=== PATIENT | female | born 1980 | race Caucasian/White ===

== ENCOUNTER 2016-08-29 20:38 | Inpatient (IN) | payer OTHER ==
[~2016-08-29] VITALS: Ht 165.1 cm; Wt 84.6 kg
[~2016-08-29 20:38] MED LIST: ACETAMINOPHEN325 MG PO; CELEXA40 MG PO; CYTOMEL25 MC1 PO; LAMICTAL25 MG PO; LEVEMIR VI100 UNITS/ SC; LIPITOR20 MG PO; LYRICA100 MG PO; NOVOLOG VI100 UNIT/1 SC; NOVOLOG100 UNIT/1 SC; PHENERGAN25 M1 PO; SYNTHROID100 MCG PO; SYNTHROID200 MCG PO; VITAMIN D1000 UNI1 PO
[2016-08-29 21:48] LABS: BILIRUBIN NEGATIVE (NEGATIVE); BLOOD TRACE-INTACT Ery/uL (NEGATIVE); CLARITY CLEAR (CLEAR); COLOR COLORLESS (YELLOW); GLUCOSE (U) 3+ mg/dL (NORMAL); KETONE (U) 3+ (LARGE) mg/dL (NEGATIVE); LEUKOCYTES NEGATIVE Leu/uL (NEGATIVE); NITRITE NEGATIVE (NEGATIVE); PROTEIN NEGATIVE (NEGATIVE); SPECIFIC GRAVITY 1.025 (1.001-1.030); UROBILINOGEN 0.2 mg/dL (0.2-1.0); pH 5.5 (5.0-9.0)
[2016-08-29 21:50] LABS: ALBUMIN 4.8 g/dL (3.5-5.0); BILIRUBIN - TOTAL 2.1 mg/dL (0.1-1.0); CREATININE 0.8 mg/dL (0.5-1.0); GLOBULIN (CALCULATION) 2.5 g/dL (2.2-4.2); POTASSIUM 4.5 mmol/L (3.5-5.1); TOTAL PROTEIN 7.3 g/dL (6.4-8.3)
[2016-08-29 21:58] LABS: BACTERIA 1+; SQUAMOUS EPITHELIAL CELLS >50; YEAST PRESENT
[2016-08-29 21:58] LABS: BASOPHIL 1.3 % (0-2); EOSINOPHIL 0.2 % (0-5); HCT 39.3 % (37.0-47.0); HGB 13.9 g/dl (12.5-16.0); LYMPHOCYTE 17.4 % (15-48); MCH 31.7 pg (25.0-31.0); MCHC 35.4 g/dL (32.0-36.0); MCV 89.5 fL (78.0-100.0); MONOCYTE 5.8 % (0-12); MPV 12.6 fL (6.0-9.5); NEUTROPHIL 75.3 % (41-80); PLT 218 K/uL (150-400); RBC 4.39 M/uL (4.20-5.40); RDW 13.5 % (11.5-14.0)
[2016-08-30 03:49] LABS: BASOPHIL 0.6 % (0-2); HCT 32.3 % (37.0-47.0); HGB 11.7 g/dl (12.5-16.0); LYMPHOCYTE 25.8 % (15-48); MCH 32.1 pg (25.0-31.0); MCHC 36.2 g/dL (32.0-36.0); MCV 88.7 fL (78.0-100.0); MONOCYTE 8.4 % (0-12); MPV 11.2 fL (6.0-9.5); NEUTROPHIL 64.2 % (41-80); PLT 197 K/uL (150-400); RBC 3.64 M/uL (4.20-5.40); RDW 13.5 % (11.5-14.0); WBC 7.7 K/uL (4.0-10.5)
[2016-08-30 04:08] LABS: CREATININE 0.7 mg/dL (0.5-1.0); PHOSPHORUS 2.2 mg/dL (2.7-4.5); POTASSIUM 3.4 mmol/L (3.5-5.1)
[2016-08-30 08:18] LABS: CREATININE 0.8 mg/dL (0.5-1.0); POTASSIUM 3.6 mmol/L (3.5-5.1)
[2016-08-30 14:43] LABS: CREATININE 0.8 mg/dL (0.5-1.0); POTASSIUM 3.8 mmol/L (3.5-5.1)
[2016-08-30 20:46] LABS: CREATININE 0.7 mg/dL (0.5-1.0); POTASSIUM 3.6 mmol/L (3.5-5.1)
[2016-08-31 07:53] LABS: CREATININE 0.7 mg/dL (0.5-1.0); POTASSIUM 3.5 mmol/L (3.5-5.1)
--- NOTE | 2016-08-31 18:00 | NUR ---
REPORT CALLED TO CATIE ESPINO ON MED SURG PTS VITALS STABLE AT THIS TIME
[2016-09-01 08:13] LABS: ALBUMIN 3.8 g/dL (3.5-5.0); BILIRUBIN - TOTAL 0.6 mg/dL (0.1-1.0); CREATININE 0.7 mg/dL (0.5-1.0); GLOBULIN (CALCULATION) 2.1 g/dL (2.2-4.2); MAGNESIUM 1.85 mg/dL (1.40-2.10); PHOSPHORUS 3.1 mg/dL (2.7-4.5); POTASSIUM 3.8 mmol/L (3.5-5.1); TOTAL PROTEIN 5.9 g/dL (6.4-8.3)
[2016-09-01] MEDS ORDERED: PROTONIX 40MG T40 MG PO (11:32)
[2016-09-01] MEDS ORDERED: LORATADINE10 MG PO (11:41)
[2016-09-01] MEDS ORDERED: HUMALOG100 UNIT/1 SC ×3 (11:41→11:42)
[2016-09-01] MEDS ORDERED: KLONOPIN1 MG PO (11:41)
[2016-09-01] MEDS ORDERED: BENTYL10 MG PO (11:42)
== END 2016-09-01 13:37 | disposition home or self-care (01) | DRG 638 ==
LOC: FER 20:38 → FICU 22:44 → FMS 08-31 18:33
PROVIDERS: Internal Medicine; ADMIT Internal Medicine
DX: E10.10 Type 1 diabetes mellitus with ketoacidosis without coma (principal); E87.1 Hypo-osmolality and hyponatremia; E83.39 Other disorders of phosphorus metabolism; F17.210 Nicotine dependence, cigarettes, uncomplicated; E03.9 Hypothyroidism, unspecified; E78.5 Hyperlipidemia, unspecified; E87.6 Hypokalemia; Z88.8 Allergy status to other drugs, medicaments and biological substances; Z79.4 Long term (current) use of insulin
CPT/HCPCS: 36415; 36600; 74022; 80048; 80053; 80061; 81001; 82009; 82803; 82947; 82962; 83605; 83690; 83735; 84100; 85025; 94010; J1815; J2270; J2405

== ENCOUNTER 2016-09-30 19:21 | Inpatient (IN) | payer OTHER ==
[~2016-09-30] VITALS: Ht 165.1 cm; Wt 79.4 kg
[~2016-09-30 19:21] MED LIST changes: +BENTYL10 MG PO; +HUMALOG100 UNIT/1 SC; +KLONOPIN1 MG PO; +LORATADINE10 MG PO; +PROTONIX 40MG T40 MG PO
[2016-09-30 20:14] LABS: BILIRUBIN NEGATIVE (NEGATIVE); BLOOD NEGATIVE Ery/uL (NEGATIVE); CLARITY CLEAR (CLEAR); COLOR YELLOW (YELLOW); GLUCOSE (U) 3+ mg/dL (NORMAL); KETONE (U) 3+ (LARGE) mg/dL (NEGATIVE); LEUKOCYTES NEGATIVE Leu/uL (NEGATIVE); NITRITE NEGATIVE (NEGATIVE); PROTEIN NEGATIVE (NEGATIVE); SPECIFIC GRAVITY 1.025 (1.001-1.030); UROBILINOGEN 0.2 mg/dL (0.2-1.0); pH 5.5 (5.0-9.0)
[2016-10-01 00:54] LABS: BASOPHIL 0.8 % (0-2); EOSINOPHIL 0.1 % (0-5); HCT 36.8 % (37.0-47.0); HGB 13.1 g/dl (12.5-16.0); LYMPHOCYTE 12.3 % (15-48); MCH 32.9 pg (25.0-31.0); MCHC 35.6 g/dL (32.0-36.0); MCV 92.5 fL (78.0-100.0); MONOCYTE 7.9 % (0-12); MPV 11.7 fL (6.0-9.5); NEUTROPHIL 78.9 % (41-80); PLT 251 K/uL (150-400); RBC 3.98 M/uL (4.20-5.40); RDW 12.6 % (11.5-14.0); WBC 10.5 K/uL (4.0-10.5)
[2016-10-01 01:10] LABS: ALBUMIN 4.4 g/dL (3.5-5.0); BILIRUBIN - TOTAL 0.6 mg/dL (0.1-1.0); CREATININE 0.9 mg/dL (0.5-1.0); GLOBULIN (CALCULATION) 2.8 g/dL (2.2-4.2); MAGNESIUM 2.12 mg/dL (1.40-2.10); POTASSIUM 4.7 mmol/L (3.5-5.1); TOTAL PROTEIN 7.2 g/dL (6.4-8.3)
[2016-10-01 01:43] LABS: LACTIC ACID 2.6 mmol/L (0.5-2.2)
[2016-10-01 04:47] LABS: BILIRUBIN - TOTAL 0.5 mg/dL (0.1-1.0); CREATININE 0.8 mg/dL (0.5-1.0); GLOBULIN (CALCULATION) 2.5 g/dL (2.2-4.2); POTASSIUM 4.7 mmol/L (3.5-5.1); TOTAL PROTEIN 6.5 g/dL (6.4-8.3)
[2016-10-01 09:57] LABS: CREATININE 0.8 mg/dL (0.5-1.0); POTASSIUM 4.4 mmol/L (3.5-5.1)
[2016-10-01 14:23] LABS: CREATININE 0.7 mg/dL (0.5-1.0); POTASSIUM 4.1 mmol/L (3.5-5.1)
--- NOTE | 2016-10-01 16:15 | NUR ---
DISCUSSED LOW BLOOD PRESSURE WITH MAP [id number] VERGARA. PT ASSESSED BY DR VERGARA AND PEDAL PULSES NOTED TO BE STRONG. NO ADDITIONAL ORDERS AT THIS TIME
[2016-10-01 19:13] LABS: CREATININE 0.5 mg/dL (0.5-1.0); POTASSIUM 3.1 mmol/L (3.5-5.1)
[2016-10-02 05:23] LABS: HCT 30.3 % (37.0-47.0); HGB 10.5 g/dl (12.5-16.0); MCH 32.5 pg (25.0-31.0); MCHC 34.7 g/dL (32.0-36.0); MCV 93.8 fL (78.0-100.0); MPV 11.7 fL (6.0-9.5); RBC 3.23 M/uL (4.20-5.40); RDW 13.1 % (11.5-14.0); WBC 6.5 K/uL (4.0-10.5)
[2016-10-02 05:40] LABS: CREATININE 0.6 mg/dL (0.5-1.0)
[2016-10-02 08:41] LABS: ALBUMIN 3.3 g/dL (3.5-5.0); BILIRUBIN - TOTAL 0.3 mg/dL (0.1-1.0); GLOBULIN (CALCULATION) 2.3 g/dL (2.2-4.2); TOTAL PROTEIN 5.6 g/dL (6.4-8.3)
[2016-10-02 12:29] LABS: IRON 35 ug/dL (44-196); IRON % SATURATION 20 %SAT (20-50); TIBC (TOTAL IRON + UIBC) 178 U/L (228-428); UIBC 143 ug/dL (112-346)
[2016-10-02 18:30] LABS: CREATININE 0.5 mg/dL (0.5-1.0); POTASSIUM 4.3 mmol/L (3.5-5.1)
[2016-10-03 03:58] LABS: HCT 30.4 % (37.0-47.0); HGB 10.3 g/dl (12.5-16.0); MCH 31.9 pg (25.0-31.0); MCHC 33.9 g/dL (32.0-36.0); MCV 94.1 fL (78.0-100.0); MPV 11.3 fL (6.0-9.5); RBC 3.23 M/uL (4.20-5.40); RDW 13.1 % (11.5-14.0); WBC 4.8 K/uL (4.0-10.5)
[2016-10-03 04:41] LABS: BUN <3.0 mg/dL (6-25); CHLORIDE 102 mmol/L (98-107); CREATININE 0.6 mg/dL (0.5-1.0); GLUCOSE 154 mg/dL (70-105)
--- NOTE | 2016-10-03 09:48 | NUR ---
orders to discontinue insulin gtt recd. Discontinued insulin gtt at 0917.
[2016-10-04 04:53] LABS: BASOPHIL 1.1 % (0-2); EOSINOPHIL 2.3 % (0-5); HCT 32.6 % (37.0-47.0); HGB 11.6 g/dl (12.5-16.0); LYMPHOCYTE 27.4 % (15-48); MCH 32.8 pg (25.0-31.0); MCHC 35.6 g/dL (32.0-36.0); MCV 92.1 fL (78.0-100.0); MONOCYTE 11.2 % (0-12); MPV 11.9 fL (6.0-9.5); PLT 141 K/uL (150-400); RBC 3.54 M/uL (4.20-5.40); RDW 12.8 % (11.5-14.0); WBC 6.2 K/uL (4.0-10.5)
[2016-10-04 06:23] LABS: CREATININE 0.6 mg/dL (0.5-1.0); POTASSIUM 4.3 mmol/L (3.5-5.1)
== END 2016-10-04 15:55 | disposition home or self-care (01) | DRG 871 ==
LOC: FER 19:21 → FICU 10-01 10:10 → FMS 10-03 16:55
PROVIDERS: Emergency Medicine; Nurse Practitioner; ADMIT Internal Medicine
DX: A41.9 Sepsis, unspecified organism (principal); E10.10 Type 1 diabetes mellitus with ketoacidosis without coma; I95.9 Hypotension, unspecified; K31.84 Gastroparesis; E10.40 Type 1 diabetes mellitus with diabetic neuropathy, unspecified; E03.9 Hypothyroidism, unspecified; E78.5 Hyperlipidemia, unspecified; F41.1 Generalized anxiety disorder; F32.9 Major depressive disorder, single episode, unspecified; F17.210 Nicotine dependence, cigarettes, uncomplicated; J20.9 Acute bronchitis, unspecified; Z79.4 Long term (current) use of insulin
CPT/HCPCS: 36415; 71010; 80048; 80053; 81003; 82009; 82040; 82247; 82330; 82533; 82607; 82962; 83036; 83540; 83550; 83605; 83690; 83735; 83930; 84075; 84100; 84155; 84450; 84460; 84484; 85025; 86403; 87070; 87077; 87186; 87205; 93005; 94010; J0456; J0610; J1815; J2270; J2405

== ENCOUNTER 2016-10-30 11:08 | Inpatient (IN) | payer OTHER ==
[~2016-10-30] VITALS: Ht 165.1 cm; Wt 68.6 kg
[2016-10-30 12:24] LABS: BASOPHIL 0.6 % (0-2); EOSINOPHIL 0.1 % (0-5); HCT 42.7 % (37.0-47.0); HGB 15.3 g/dl (12.5-16.0); LYMPHOCYTE 10.2 % (15-48); MCH 31.5 pg (25.0-31.0); MCHC 35.8 g/dL (32.0-36.0); MCV 87.9 fL (78.0-100.0); MONOCYTE 4.1 % (0-12); MPV 11.5 fL (6.0-9.5); PLT 257 K/uL (150-400); RBC 4.86 M/uL (4.20-5.40); RDW 11.9 % (11.5-14.0); WBC 10.4 K/uL (4.0-10.5)
[2016-10-30 12:30] LABS: LACTIC ACID 2.3 mmol/L (0.5-2.2)
[2016-10-30 12:33] LABS: ALBUMIN 4.5 g/dL (3.5-5.0); BILIRUBIN - TOTAL 0.6 mg/dL (0.1-1.0); CREATININE 0.6 mg/dL (0.5-1.0); GLOBULIN (CALCULATION) 3.8 g/dL (2.2-4.2); POTASSIUM 4.2 mmol/L (3.5-5.1); TOTAL PROTEIN 8.3 g/dL (6.4-8.3)
[2016-10-30 13:43] LABS: BILIRUBIN 1+ mg/dL (NEGATIVE); BLOOD NEGATIVE Ery/uL (NEGATIVE); CLARITY CLEAR (CLEAR); COLOR YELLOW (YELLOW); GLUCOSE (U) 2+ mg/dL (NORMAL); KETONE (U) 3+ (LARGE) mg/dL (NEGATIVE); LEUKOCYTES NEGATIVE Leu/uL (NEGATIVE); NITRITE NEGATIVE (NEGATIVE); PROTEIN 1+ mg/dL (NEGATIVE); SPECIFIC GRAVITY >=1.030 (1.001-1.030); UROBILINOGEN 0.2 mg/dL (0.2-1.0); pH 5.5 (5.0-9.0)
[2016-10-30 13:50] LABS: BACTERIA 2+; SQUAMOUS EPITHELIAL CELLS >50; YEAST PRESENT
[2016-10-30 18:33] LABS: CREATININE 0.4 mg/dL (0.5-1.0)
[2016-10-31 04:14] LABS: HCT 33.5 % (37.0-47.0); HGB 11.9 g/dl (12.5-16.0); MCH 31.6 pg (25.0-31.0); MCHC 35.5 g/dL (32.0-36.0); MCV 89.1 fL (78.0-100.0); MPV 11.4 fL (6.0-9.5); RBC 3.76 M/uL (4.20-5.40); WBC 5.7 K/uL (4.0-10.5)
[2016-10-31 04:45] LABS: CREATININE 0.5 mg/dL (0.5-1.0); POTASSIUM 3.8 mmol/L (3.5-5.1)
== END 2016-10-31 13:02 | DRG 638 ==
LOC: FER 11:08 → FICU 13:20
PROVIDERS: Emergency Medicine; ADMIT Internal Medicine
DX: E10.10 Type 1 diabetes mellitus with ketoacidosis without coma (principal); R45.851 Suicidal ideations; F17.210 Nicotine dependence, cigarettes, uncomplicated; F32.9 Major depressive disorder, single episode, unspecified; E78.5 Hyperlipidemia, unspecified; E03.9 Hypothyroidism, unspecified; F41.9 Anxiety disorder, unspecified; G62.9 Polyneuropathy, unspecified; K21.9 Gastro-esophageal reflux disease without esophagitis; K31.84 Gastroparesis; Z79.4 Long term (current) use of insulin; Z79.899 Other long term (current) drug therapy
CPT/HCPCS: 36415; 36600; 80048; 80053; 81001; 82009; 82803; 82962; 83605; 83690; 85025; 87088; C9113; J1815; J2405; J2765

== ENCOUNTER 2017-01-29 14:10 | Inpatient (IN) | payer OTHER ==
[~2017-01-29] VITALS: Ht 165.1 cm; Wt 75.8 kg
[2017-01-29 14:56] LABS: BASOPHIL 0.5 % (0-2); EOSINOPHIL 1.1 % (0-5); HCT 37.5 % (37.0-47.0); HGB 12.9 g/dl (12.5-16.0); LYMPHOCYTE 13.7 % (15-48); MCH 29.1 pg (25.0-31.0); MCHC 34.4 g/dL (32.0-36.0); MCV 84.5 fL (78.0-100.0); MONOCYTE 4.8 % (0-12); MPV 11.1 fL (6.0-9.5); NEUTROPHIL 79.9 % (41-80); PLT 277 K/uL (150-400); RBC 4.44 M/uL (4.20-5.40); RDW 12.5 % (11.5-14.0); WBC 10.5 K/uL (4.0-10.5)
[2017-01-29 15:14] LABS: ALBUMIN 3.6 g/dL (3.5-5.0); BILIRUBIN - TOTAL 0.3 mg/dL (0.1-1.0); CREATININE 0.7 mg/dL (0.5-1.0); GLOBULIN (CALCULATION) 2.8 g/dL (2.2-4.2); POTASSIUM 5.3 mmol/L (3.5-5.1); TOTAL PROTEIN 6.4 g/dL (6.4-8.3)
[2017-01-29 15:26] LABS: BILIRUBIN NEGATIVE (NEGATIVE); BLOOD NEGATIVE Ery/uL (NEGATIVE); CLARITY CLEAR (CLEAR); COLOR STRAW (YELLOW); GLUCOSE (U) 3+ mg/dL (NORMAL); KETONE (U) 3+ (LARGE) mg/dL (NEGATIVE); LEUKOCYTES NEGATIVE Leu/uL (NEGATIVE); NITRITE NEGATIVE (NEGATIVE); PROTEIN NEGATIVE (NEGATIVE); UROBILINOGEN 0.2 mg/dL (0.2-1.0); pH 5.5 (5.0-9.0)
[2017-01-29 15:40] LABS: AMPHETAMINES NEGATIVE (NEGATIVE); BARBITURATES NEGATIVE (NEGATIVE); BENZODIAZEPINES NEGATIVE (NEGATIVE); COCAINE NEGATIVE (NEGATIVE); MARIJUANA (THC) NEGATIVE (NEGATIVE); METHADONE NEGATIVE (NEGATIVE); TRICYCLIC ANTIDEPRESSANT NEGATIVE (NEGATIVE)
[2017-01-29 21:20] LABS: CREATININE 0.5 mg/dL (0.5-1.0); MAGNESIUM 1.68 mg/dL (1.40-2.10); PHOSPHORUS 1.5 mg/dL (2.7-4.5); POTASSIUM 3.6 mmol/L (3.5-5.1)
[2017-01-30 02:40] LABS: CREATININE 0.5 mg/dL (0.5-1.0); MAGNESIUM 1.68 mg/dL (1.40-2.10); PHOSPHORUS 2.1 mg/dL (2.7-4.5); POTASSIUM 3.6 mmol/L (3.5-5.1)
[2017-01-30 06:15] LABS: C-REACTIVE PROTEIN 4.8 mg/dL (0.00-0.50)
[2017-01-30 06:26] LABS: FT4 (FREE T4) 0.485 ng/dL (0.93-1.70); TSH (THYROID STIM HORMONE) 51.43 uIU/mL (0.270-4.200)
[2017-01-30 08:24] LABS: HCT 33.9 % (37.0-47.0); HGB 11.5 g/dl (12.5-16.0); MCH 28.9 pg (25.0-31.0); MCHC 33.9 g/dL (32.0-36.0); MCV 85.2 fL (78.0-100.0); MPV 11.5 fL (6.0-9.5); RBC 3.98 M/uL (4.20-5.40); WBC 5.5 K/uL (4.0-10.5)
[2017-01-30 08:59] LABS: CREATININE 0.5 mg/dL (0.5-1.0); MAGNESIUM 1.72 mg/dL (1.40-2.10); PHOSPHORUS 2.5 mg/dL (2.7-4.5); POTASSIUM 3.3 mmol/L (3.5-5.1)
[2017-01-30 17:29] LABS: CREATININE 0.5 mg/dL (0.5-1.0); MAGNESIUM 1.62 mg/dL (1.40-2.10); PHOSPHORUS 3.4 mg/dL (2.7-4.5)
[2017-01-31 05:53] LABS: HCT 34.9 % (37.0-47.0); HGB 12.1 g/dl (12.5-16.0); MCH 29.3 pg (25.0-31.0); MCHC 34.7 g/dL (32.0-36.0); MCV 84.5 fL (78.0-100.0); RBC 4.13 M/uL (4.20-5.40); RDW 13.1 % (11.5-14.0); WBC 7.9 K/uL (4.0-10.5)
[2017-01-31 06:22] LABS: BILIRUBIN - TOTAL 0.3 mg/dL (0.1-1.0); CREATININE 0.5 mg/dL (0.5-1.0); GLOBULIN (CALCULATION) 2.7 g/dL (2.2-4.2); MAGNESIUM 1.87 mg/dL (1.40-2.10); PHOSPHORUS 2.2 mg/dL (2.7-4.5); POTASSIUM 3.2 mmol/L (3.5-5.1); TOTAL PROTEIN 5.7 g/dL (6.4-8.3)
[2017-02-01 05:09] LABS: BASOPHIL 1.3 % (0-2); EOSINOPHIL 4.1 % (0-5); HCT 34.6 % (37.0-47.0); HGB 11.7 g/dl (12.5-16.0); LYMPHOCYTE 48.5 % (15-48); MCH 28.9 pg (25.0-31.0); MCHC 33.8 g/dL (32.0-36.0); MCV 85.4 fL (78.0-100.0); MONOCYTE 7.2 % (0-12); MPV 10.5 fL (6.0-9.5); NEUTROPHIL 38.9 % (41-80); PLT 240 K/uL (150-400); RBC 4.05 M/uL (4.20-5.40); RDW 13.4 % (11.5-14.0); WBC 5.4 K/uL (4.0-10.5)
[2017-02-01 05:28] LABS: ALBUMIN 2.9 g/dL (3.5-5.0); BILIRUBIN - TOTAL 0.2 mg/dL (0.1-1.0); CREATININE 0.5 mg/dL (0.5-1.0); GLOBULIN (CALCULATION) 2.7 g/dL (2.2-4.2); MAGNESIUM 1.67 mg/dL (1.40-2.10); PHOSPHORUS 2.7 mg/dL (2.7-4.5); POTASSIUM 3.8 mmol/L (3.5-5.1); TOTAL PROTEIN 5.6 g/dL (6.4-8.3)
[2017-02-01 09:41] LABS: BILIRUBIN NEGATIVE (NEGATIVE); BLOOD NEGATIVE Ery/uL (NEGATIVE); CLARITY CLEAR (CLEAR); COLOR YELLOW (YELLOW); GLUCOSE (U) NORMAL (NORMAL); KETONE (U) NEGATIVE (NEGATIVE); LEUKOCYTES NEGATIVE Leu/uL (NEGATIVE); NITRITE NEGATIVE (NEGATIVE); PROTEIN NEGATIVE (NEGATIVE); SPECIFIC GRAVITY <=1.005 (1.001-1.030); UROBILINOGEN 0.2 mg/dL (0.2-1.0)
[2017-02-01 09:56] LABS: URINARY RBC RARE; URINARY WBC RARE
[2017-02-02 05:52] LABS: BASOPHIL 0.5 % (0-2); EOSINOPHIL 1.8 % (0-5); HCT 34.9 % (37.0-47.0); HGB 11.8 g/dl (12.5-16.0); LYMPHOCYTE 31.2 % (15-48); MCH 29.4 pg (25.0-31.0); MCHC 33.8 g/dL (32.0-36.0); MCV 86.8 fL (78.0-100.0); MONOCYTE 4.9 % (0-12); MPV 11.1 fL (6.0-9.5); NEUTROPHIL 61.6 % (41-80); PLT 217 K/uL (150-400); RBC 4.02 M/uL (4.20-5.40); RDW 13.5 % (11.5-14.0); WBC 7.8 K/uL (4.0-10.5)
[2017-02-02 06:12] LABS: ALBUMIN 2.9 g/dL (3.5-5.0); BILIRUBIN - TOTAL 0.3 mg/dL (0.1-1.0); CREATININE 0.5 mg/dL (0.5-1.0); GLOBULIN (CALCULATION) 2.3 g/dL (2.2-4.2); POTASSIUM 3.7 mmol/L (3.5-5.1); TOTAL PROTEIN 5.2 g/dL (6.4-8.3)
[2017-02-03 05:57] LABS: BASOPHIL 0.8 % (0-2); EOSINOPHIL 2.6 % (0-5); HCT 35.6 % (37.0-47.0); HGB 12.1 g/dl (12.5-16.0); LYMPHOCYTE 35.6 % (15-48); MCH 30.1 pg (25.0-31.0); MCV 88.6 fL (78.0-100.0); MONOCYTE 5.7 % (0-12); MPV 10.8 fL (6.0-9.5); NEUTROPHIL 55.3 % (41-80); PLT 209 K/uL (150-400); RBC 4.02 M/uL (4.20-5.40); RDW 13.5 % (11.5-14.0); WBC 7.4 K/uL (4.0-10.5)
[2017-02-03 06:18] LABS: ALBUMIN 2.9 g/dL (3.5-5.0); BILIRUBIN - TOTAL 0.2 mg/dL (0.1-1.0); CREATININE 0.6 mg/dL (0.5-1.0); GLOBULIN (CALCULATION) 2.3 g/dL (2.2-4.2); MAGNESIUM 1.69 mg/dL (1.40-2.10); TOTAL PROTEIN 5.2 g/dL (6.4-8.3)
[2017-02-03 09:55] LABS: BILIRUBIN NEGATIVE (NEGATIVE); BLOOD NEGATIVE Ery/uL (NEGATIVE); CLARITY CLEAR (CLEAR); COLOR YELLOW (YELLOW); GLUCOSE (U) NORMAL (NORMAL); KETONE (U) NEGATIVE (NEGATIVE); LEUKOCYTES NEGATIVE Leu/uL (NEGATIVE); NITRITE NEGATIVE (NEGATIVE); PROTEIN NEGATIVE (NEGATIVE); SPECIFIC GRAVITY 1.015 (1.001-1.030); UROBILINOGEN 0.2 mg/dL (0.2-1.0); pH 7.5 (5.0-9.0)
[2017-02-03] MEDS ORDERED: LEXAPRO20 MG PO (10:06)
[2017-02-03] MEDS ORDERED: BUSPAR5 MG PO (10:06)
[2017-02-03] MEDS ORDERED: ATARAX25 MG PO (10:06)
[2017-02-03] MEDS ORDERED: TRAZODONE 100M100 MG PO (10:07)
[2017-02-03] MEDS ORDERED: MIRALAX17 GM PO (10:07)
[2017-02-03] MEDS ORDERED: [UNRECOGNIZED DRUG - REMARK] (10:07)
[2017-02-03] MEDS ORDERED: HUMALOG100 UNIT/2 SC (10:10)
[2017-02-03 11:37] LABS: SQUAMOUS EPITHELIAL CELLS RARE; URINARY WBC RARE
== END 2017-02-03 10:55 | disposition home or self-care (01) | DRG 638 ==
LOC: FER 14:10 → FICU 16:08 → FMS 16:08 → FTCU 01-30 18:30 → FMS 02-01 11:37
PROVIDERS: Emergency Medicine; Internal Medicine; ADMIT Internal Medicine
DX: E10.10 Type 1 diabetes mellitus with ketoacidosis without coma (principal); E87.1 Hypo-osmolality and hyponatremia; I95.9 Hypotension, unspecified; F32.2 Major depressive disorder, single episode, severe without psychotic features; K31.84 Gastroparesis; E87.5 Hyperkalemia; E03.9 Hypothyroidism, unspecified; F41.9 Anxiety disorder, unspecified; K21.9 Gastro-esophageal reflux disease without esophagitis; E78.5 Hyperlipidemia, unspecified; F17.210 Nicotine dependence, cigarettes, uncomplicated; K59.09 Other constipation; Z79.4 Long term (current) use of insulin; Z79.899 Other long term (current) drug therapy
CPT/HCPCS: 36415; 36600; 74022; 76705; 80048; 80053; 80061; 80305; 81001; 81003; 82009; 82533; 82803; 82962; 83690; 83735; 84100; 84439; 84443; 85025; 85651; 86140; 93005; J1710; J1815; J2405

== ENCOUNTER 2017-02-10 21:45 | Inpatient (IN) | payer OTHER ==
[~2017-02-10] VITALS: Ht 167.6 cm; Wt 73.6 kg
[~2017-02-10 21:45] MED LIST changes: +ATARAX25 MG PO; +BUSPAR5 MG PO; +HUMALOG100 UNIT/2 SC; +LEXAPRO20 MG PO; +MIRALAX17 GM PO; +TRAZODONE 100M100 MG PO; +[UNRECOGNIZED DRUG - REMARK]
[2017-02-10 22:22] LABS: BASOPHIL 1.2 % (0-2); EOSINOPHIL 0.5 % (0-5); HCT 43.2 % (37.0-47.0); HGB 14.5 g/dl (12.5-16.0); LYMPHOCYTE 18.2 % (15-48); MCH 30.1 pg (25.0-31.0); MCHC 33.6 g/dL (32.0-36.0); MCV 89.8 fL (78.0-100.0); MONOCYTE 9.8 % (0-12); MPV 11.5 fL (6.0-9.5); NEUTROPHIL 70.3 % (41-80); PLT 267 K/uL (150-400); RBC 4.81 M/uL (4.20-5.40); WBC 11.1 K/uL (4.0-10.5)
[2017-02-10 23:45] LABS: ALBUMIN 3.9 g/dL (3.5-5.0); CREATININE 0.7 mg/dL (0.5-1.0); POTASSIUM 4.8 mmol/L (3.5-5.1); TOTAL PROTEIN 6.9 g/dL (6.4-8.3)
[2017-02-11 01:01] LABS: BILIRUBIN 1+ mg/dL (NEGATIVE); BLOOD NEGATIVE Ery/uL (NEGATIVE); CLARITY CLEAR (CLEAR); COLOR STRAW (YELLOW); GLUCOSE (U) 2+ mg/dL (NORMAL); KETONE (U) 3+ (LARGE) mg/dL (NEGATIVE); LEUKOCYTES NEGATIVE Leu/uL (NEGATIVE); NITRITE NEGATIVE (NEGATIVE); PROTEIN TRACE (LOW) mg/dL (NEGATIVE); SPECIFIC GRAVITY 1.025 (1.001-1.030); UROBILINOGEN 0.2 mg/dL (0.2-1.0); pH 5.5 (5.0-9.0)
[2017-02-11 03:21] LABS: CREATININE 0.6 mg/dL (0.5-1.0); POTASSIUM 5.1 mmol/L (3.5-5.1)
[2017-02-11 06:15] LABS: CREATININE 0.5 mg/dL (0.5-1.0)
[2017-02-11 10:44] LABS: ALBUMIN 3.4 g/dL (3.5-5.0); BILIRUBIN - TOTAL 0.8 mg/dL (0.1-1.0); CREATININE 0.4 mg/dL (0.5-1.0); GLOBULIN (CALCULATION) 2.8 g/dL (2.2-4.2); POTASSIUM 4.2 mmol/L (3.5-5.1); TOTAL PROTEIN 6.2 g/dL (6.4-8.3)
[2017-02-11 15:10] LABS: CREATININE 0.5 mg/dL (0.5-1.0); MAGNESIUM 1.86 mg/dL (1.40-2.10); PHOSPHORUS 2.2 mg/dL (2.7-4.5); POTASSIUM 4.1 mmol/L (3.5-5.1)
[2017-02-11 20:23] LABS: CREATININE 0.5 mg/dL (0.5-1.0); POTASSIUM 3.8 mmol/L (3.5-5.1)
[2017-02-12 05:45] LABS: BASOPHIL 0.9 % (0-2); EOSINOPHIL 2.8 % (0-5); HCT 34.5 % (37.0-47.0); HGB 11.8 g/dl (12.5-16.0); LYMPHOCYTE 28.2 % (15-48); MCH 29.6 pg (25.0-31.0); MCHC 34.2 g/dL (32.0-36.0); MCV 86.5 fL (78.0-100.0); MONOCYTE 7.5 % (0-12); MPV 11.2 fL (6.0-9.5); NEUTROPHIL 60.6 % (41-80); PLT 237 K/uL (150-400); RBC 3.99 M/uL (4.20-5.40); RDW 13.8 % (11.5-14.0); WBC 7.1 K/uL (4.0-10.5)
[2017-02-12 06:23] LABS: ALBUMIN 3.2 g/dL (3.5-5.0); BILIRUBIN - TOTAL 0.6 mg/dL (0.1-1.0); CREATININE 0.4 mg/dL (0.5-1.0); GLOBULIN (CALCULATION) 2.6 g/dL (2.2-4.2); MAGNESIUM 1.67 mg/dL (1.40-2.10); POTASSIUM 3.9 mmol/L (3.5-5.1); TOTAL PROTEIN 5.8 g/dL (6.4-8.3)
[2017-02-13 06:12] LABS: BASOPHIL 0.7 % (0-2); EOSINOPHIL 3.2 % (0-5); HCT 34.7 % (37.0-47.0); HGB 11.7 g/dl (12.5-16.0); LYMPHOCYTE 40.8 % (15-48); MCHC 33.7 g/dL (32.0-36.0); MCV 86.1 fL (78.0-100.0); MPV 11.3 fL (6.0-9.5); NEUTROPHIL 47.3 % (41-80); PLT 225 K/uL (150-400); RBC 4.03 M/uL (4.20-5.40); RDW 13.9 % (11.5-14.0); WBC 5.9 K/uL (4.0-10.5)
[2017-02-13 06:34] LABS: ALBUMIN 3.4 g/dL (3.5-5.0); BILIRUBIN - TOTAL 0.7 mg/dL (0.1-1.0); CREATININE 0.5 mg/dL (0.5-1.0); GLOBULIN (CALCULATION) 2.5 g/dL (2.2-4.2); POTASSIUM 3.8 mmol/L (3.5-5.1); TOTAL PROTEIN 5.9 g/dL (6.4-8.3)
== END 2017-02-13 14:32 | disposition home or self-care (01) | DRG 638 ==
LOC: FER 21:45 → FICU 02-11 10:57 → FMS 02-12 17:00
PROVIDERS: Emergency Medicine; ADMIT Internal Medicine
DX: E10.10 Type 1 diabetes mellitus with ketoacidosis without coma (principal); F32.1 Major depressive disorder, single episode, moderate; R65.10 Systemic inflammatory response syndrome (SIRS) of non-infectious origin without acute organ dysfunction; E10.40 Type 1 diabetes mellitus with diabetic neuropathy, unspecified; E03.9 Hypothyroidism, unspecified; E78.5 Hyperlipidemia, unspecified; F41.1 Generalized anxiety disorder; R10.11 Right upper quadrant pain; Z88.8 Allergy status to other drugs, medicaments and biological substances; Z91.14 Patient's other noncompliance with medication regimen; Z79.4 Long term (current) use of insulin
CPT/HCPCS: 36415; 36600; 74022; 78227; 80048; 80053; 81003; 82009; 82803; 82962; 83036; 83690; 83735; 84100; 84443; 85025; 94010; C9113; J1815; J1885; J2405; J2765